=== PATIENT | female | born 1935 | race Caucasian/White ===

== ENCOUNTER 2019-04-17 18:58 | Inpatient (IN) ==
[2019-04-17] MEDS ORDERED: ALBUTEROL/IPRATROPIUM 3 ML NEB RESP TX STA (19:28)
[2019-04-17] MEDS ORDERED: ACETAMINOPHEN 500 MG TABLET PO STA (19:28)
[2019-04-17 19:36] LABS: Basophils % 0.2 % (0.0-0.8); Eosinophils # 0.2 10*3/uL (0.0-0.87); Eosinophils % 2.2 % (0.00-10.9); Hemoglobin 11.3 GM/DL (12.0-16.0); Immature Granulocytes % 0.5 %; Immature Granulocytes Absolute 0.04 #; Lymphocytes # 0.7 10*3/uL (1.4-4.0); Lymphocytes % 8.8 % (21.3-54.2); Mean Corpuscular HGB Conc 32.3 GM/DL (32-36); Mean Corpuscular Volume 93.8 FL (87-102); Mean Platelet Volume 9.4 FL (9.6-12.0); Monocytes % 6.9 % (1.7-12.7); Neutrophils % 81.4 % (38.7-73.9); Platelet Count 209 T/CUMM (130-400); Red Blood Count 3.73 MC/CUMM (3.8-5.5); White Blood Count 8.4 T/CUMM (4-12)
[2019-04-17 20:02] LABS: Alanine Aminotransferase 19 U/L (13-56); Albumin 3.4 G/DL (3.4-5.0); Alkaline Phosphatase 76 U/L (45-117); Aspartate Amino Transferase 21 U/L (0-37); Bilirubin,Total < 0.39 MG/DL (0.2-1.0); Blood Urea Nitrogen 21 MG/DL (7-18); Calcium 8.9 MG/DL (8.5-10.1); Estimated Glom Filtration Rate 20 ML/MIN; Glucose 125 MG/DL (74-106); Osmolality,Calculated 286.1 MOS/KG (273-304); Total Protein 6.7 G/DL (6.4-8.3)
[2019-04-17] MEDS ORDERED: SODIUM CHLORIDE 0.9% 1,000 ML IV STA (20:28)
[2019-04-17] MEDS ORDERED: cefTRIAXone 1,000 MG in SODIUM CHLORIDE 0.9% 100 ML IV STA (20:28)
[2019-04-17] MEDS ORDERED: DOXYCYCLINE HYCLATE INJ 100 MG in SODIUM CHLORIDE 0.9% 100 ML IV STA (20:28)
[2019-04-17] MEDS ORDERED: predniSONE 20 MG TABLET PO ONE (21:35)
[2019-04-17] MEDS ORDERED: TRAVOPROST 0.004% OPH SOLN 2.5 ML BOTTLE BOTH EYES SCH (22:17)
[2019-04-17] MEDS ORDERED: LACTATED RINGERS 1,000 ML IV SCH (22:17)
[2019-04-17] MEDS: SIMVASTATIN 20 MG TABLET PO SCH (23:26)
[2019-04-17] MEDS: EZETIMIBE 10 MG TABLET PO SCH (23:26)
[2019-04-17] MEDS: clonazePAM 0.5 MG TABLET PO SCH (23:26)
[2019-04-17] MEDS: TRAVOPROST 0.004% OPH SOLN 2.5 ML BOTTLE BOTH EYES SCH (23:26)
[2019-04-17] MEDS: HEPARIN 5,000 UNIT/1 ML VIAL SUBCUT SCH (23:31)
[2019-04-17] MEDS: ALBUTEROL 2.5 MG/3 ML NEB RESP TX SCH (23:35)
[2019-04-18] MEDS: ALBUTEROL 2.5 MG/3 ML NEB RESP TX SCH ×5 (02:50→20:14)
[2019-04-18] MEDS: guaiFENesin 200 MG/10 ML UDCUP PO PRN ×2 (03:05→23:27)
[2019-04-18] MEDS ORDERED: LEVOTHYROXINE 50 MCG TABLET PO SCH (06:00)
[2019-04-18 06:21] LABS: Basophils % 0.1 % (0.0-0.8); Hematocrit 32.6 VOL% (35.7-47.0); Hemoglobin 10.4 GM/DL (12.0-16.0); Immature Granulocytes % 0.8 %; Immature Granulocytes Absolute 0.08 #; Lymphocytes # 0.3 10*3/uL (1.4-4.0); Lymphocytes % 3.5 % (21.3-54.2); Mean Corpuscular HGB Conc 31.9 GM/DL (32-36); Mean Corpuscular Volume 93.4 FL (87-102); Mean Platelet Volume 9.6 FL (9.6-12.0); Neutrophils % 93.6 % (38.7-73.9); Platelet Count 200 T/CUMM (130-400); Red Blood Count 3.49 MC/CUMM (3.8-5.5); Red Cell Distribution Width 14.2 % (9.3-17.3); White Blood Count 9.8 T/CUMM (4-12)
[2019-04-18 06:40] LABS: Lymphocytes 3 % (20-55); Platelet Estimate Normal; Segmented Neutrophils 95 % (50-85); Total Cells Counted 100
[2019-04-18 06:41] LABS: Microcytosis Slight; Ovalocytes Slight; Polychromasia Slight
[2019-04-18 06:47] LABS: Troponin I < 0.015 NG/ML (0.00-0.045)
[2019-04-18] MEDS: HEPARIN 5,000 UNIT/1 ML VIAL SUBCUT SCH ×3 (06:49→23:40)
[2019-04-18 06:54] LABS: Calcium 8.3 MG/DL (8.5-10.1); Osmolality,Calculated 294.7 MOS/KG (273-304); Risk Ratio 1.76; Thyroid Stimulating Hormone 0.037 uIU/ml (0.358-3.74)
[2019-04-18] MEDS: MONTELUKAST 10 MG TABLET PO SCH (09:41)
[2019-04-18] MEDS: MAGNESIUM CHLORIDE 64 MG TABLET PO SCH ×3 (09:41→20:50)
[2019-04-18] MEDS: predniSONE 20 MG TABLET PO SCH (09:42)
[2019-04-18] MEDS: PANTOPRAZOLE 40 MG TABLET PO SCH (09:42)
[2019-04-18 10:09] LABS: Apearance,Urine CLEAR (Clear); Bacteria,Urine Occasional /HPF (Few); Bilirubin,Urine Negative (Negative); Blood, Urine Small mg/dL (Negative); Glucose,Urine (UA) Negative (Negative); Ketones,Urine Negative (Negative); Mucus,Urine Occasional /LPF (Occasional); Nitrite,Urine Negative (Negative); Protein,Urine Negative; RBC,Urine 1 /HPF (0-4); Squamous Epithelial Cell,Urine Occasional /HPF (0-10); Transitional Epi Cells,Urine Occasional /HPF (<1); Urine Color Yellow (Yellow); Urine Specific Gravity 1.009 (1.001-1.035); Urine Urobilinogen < 2.0 EU/DL (0.2-1.0); WBC,Urine 1 /HPF (0-6)
[2019-04-18] MEDS ORDERED: INFLUENZA VIRUS VACCINE 0.5 ML SYRINGE IM ONE (13:07)
[2019-04-18] MEDS ORDERED: SODIUM CHLORIDE 0.9% 1,000 ML IV SCH ×2 (13:30)
[2019-04-18] MEDS ORDERED: SODIUM CHLORIDE 0.9% 500 ML IV ONE (13:47)
[2019-04-18] MEDS ORDERED: FUROSEMIDE 40 MG/4 ML VIAL IV ONE (14:54)
[2019-04-18] MEDS ORDERED: FUROSEMIDE 40 MG/4 ML VIAL ONE (15:41)
[2019-04-18] MEDS: SIMVASTATIN 20 MG TABLET PO SCH (20:49)
[2019-04-18] MEDS: CETIRIZINE 10 MG TABLET PO PRN (20:49)
[2019-04-18] MEDS: EZETIMIBE 10 MG TABLET PO SCH (20:49)
[2019-04-18] MEDS: clonazePAM 0.5 MG TABLET PO SCH (20:50)
[2019-04-18] MEDS: TRAVOPROST 0.004% OPH SOLN 2.5 ML BOTTLE BOTH EYES SCH (20:52)
[2019-04-18] MEDS: cefTRIAXone 1,000 MG in SYRINGE 1 EACH IV SCH (20:55)
[2019-04-18] MEDS: ACETAMINOPHEN 500 MG TABLET PO PRN (22:04)
[2019-04-18] MEDS: TEMAZEPAM 15 MG CAPSULE PO SCH (23:04)
[2019-04-19] MEDS: ALBUTEROL 2.5 MG/3 ML NEB RESP TX SCH ×7 (00:16→23:23)
[2019-04-19 05:11] LABS: Basophils % 0.1 % (0.0-0.8); Hematocrit 29.3 VOL% (35.7-47.0); Hemoglobin 9.5 GM/DL (12.0-16.0); Immature Granulocytes % 1.3 %; Immature Granulocytes Absolute 0.12 #; Lymphocytes # 0.5 10*3/uL (1.4-4.0); Lymphocytes % 5.5 % (21.3-54.2); Mean Corpuscular HGB Conc 32.4 GM/DL (32-36); Mean Corpuscular Volume 92.4 FL (87-102); Mean Platelet Volume 9.9 FL (9.6-12.0); Monocytes % 3.8 % (1.7-12.7); Neutrophils % 89.3 % (38.7-73.9); Platelet Count 201 T/CUMM (130-400); Red Blood Count 3.17 MC/CUMM (3.8-5.5); Red Cell Distribution Width 13.8 % (9.3-17.3); White Blood Count 9.4 T/CUMM (4-12)
[2019-04-19 05:47] LABS: Albumin 2.8 G/DL (3.4-5.0); Bilirubin,Total 0.4 MG/DL (0.2-1.0); Calcium 8.6 MG/DL (8.5-10.1); Osmolality,Calculated 293.3 MOS/KG (273-304); Total Protein 5.9 G/DL (6.4-8.3)
[2019-04-19] MEDS: HEPARIN 5,000 UNIT/1 ML VIAL SUBCUT SCH ×3 (07:08→22:25)
[2019-04-19] MEDS: LEVOTHYROXINE 25 MCG TABLET PO SCH (08:16)
[2019-04-19] MEDS: predniSONE 20 MG TABLET PO SCH (08:16)
[2019-04-19] MEDS: MAGNESIUM CHLORIDE 64 MG TABLET PO SCH ×3 (08:16→20:43)
[2019-04-19] MEDS: MONTELUKAST 10 MG TABLET PO SCH ×2 (08:16→20:44)
[2019-04-19] MEDS: PANTOPRAZOLE 40 MG TABLET PO SCH (08:16)
[2019-04-19] MEDS: guaiFENesin 200 MG/10 ML UDCUP PO PRN ×2 (09:01→22:25)
[2019-04-19] MEDS: ACETAMINOPHEN 500 MG TABLET PO PRN (17:55)
[2019-04-19] MEDS: TRAVOPROST 0.004% OPH SOLN 2.5 ML BOTTLE BOTH EYES SCH (20:43)
[2019-04-19] MEDS: EZETIMIBE 10 MG TABLET PO SCH (20:44)
[2019-04-19] MEDS: SIMVASTATIN 20 MG TABLET PO SCH (20:44)
[2019-04-19] MEDS: clonazePAM 0.5 MG TABLET PO SCH (20:44)
[2019-04-19] MEDS: cefTRIAXone 1,000 MG in SYRINGE 1 EACH IV SCH (20:45)
[2019-04-19] MEDS: TEMAZEPAM 15 MG CAPSULE PO SCH (20:45)
[2019-04-20] MEDS: ALBUTEROL 2.5 MG/3 ML NEB RESP TX SCH ×6 (00:43→22:55)
[2019-04-20 06:07] LABS: Basophils % 0.2 % (0.0-0.8); Hematocrit 31.6 VOL% (35.7-47.0); Immature Granulocytes % 1.8 %; Immature Granulocytes Absolute 0.18 #; Lymphocytes % 10.3 % (21.3-54.2); Mean Corpuscular HGB Conc 31.6 GM/DL (32-36); Mean Corpuscular Volume 94.3 FL (87-102); Mean Platelet Volume 9.8 FL (9.6-12.0); Monocytes % 5.3 % (1.7-12.7); Neutrophils % 82.4 % (38.7-73.9); Platelet Count 226 T/CUMM (130-400); Red Blood Count 3.35 MC/CUMM (3.8-5.5); White Blood Count 9.9 T/CUMM (4-12)
[2019-04-20] MEDS: HEPARIN 5,000 UNIT/1 ML VIAL SUBCUT SCH ×3 (06:18→20:42)
[2019-04-20] MEDS: LEVOTHYROXINE 25 MCG TABLET PO SCH (06:18)
[2019-04-20 07:11] LABS: Calcium 8.6 MG/DL (8.5-10.1); Osmolality,Calculated 293.1 MOS/KG (273-304)
[2019-04-20 07:14] LABS: Albumin 2.8 G/DL (3.4-5.0); Calcium 8.5 MG/DL (8.5-10.1); Osmolality,Calculated 302.4 MOS/KG (273-304)
[2019-04-20] MEDS: MONTELUKAST 10 MG TABLET PO SCH ×2 (08:47→20:44)
[2019-04-20] MEDS: predniSONE 20 MG TABLET PO SCH (08:48)
[2019-04-20] MEDS: MAGNESIUM CHLORIDE 64 MG TABLET PO SCH ×3 (08:48→20:43)
[2019-04-20] MEDS: PANTOPRAZOLE 40 MG TABLET PO SCH (08:48)
[2019-04-20 11:03] LABS: Free T4 (Free Thyroxine) 1.32 NG/DL (0.76-1.46); Thyroid Stimulating Hormone 0.016 uIU/ml (0.358-3.74)
[2019-04-20] MEDS: ASPIRIN CHEW 81 MG TABLET PO SCH (12:25)
[2019-04-20] MEDS: DORNASE ALFA 2.5 MG/2.5 ML VIAL RESP TX SCH (12:26)
[2019-04-20] MEDS: guaiFENesin 200 MG/10 ML UDCUP PO PRN (17:50)
[2019-04-20] MEDS: ACETAMINOPHEN 500 MG TABLET PO PRN (19:48)
[2019-04-20] MEDS: TRAVOPROST 0.004% OPH SOLN 2.5 ML BOTTLE BOTH EYES SCH (20:42)
[2019-04-20] MEDS: cefTRIAXone 1,000 MG in SYRINGE 1 EACH IV SCH (20:42)
[2019-04-20] MEDS: TEMAZEPAM 15 MG CAPSULE PO SCH (20:43)
[2019-04-20] MEDS: clonazePAM 0.5 MG TABLET PO SCH (20:43)
[2019-04-20] MEDS: SIMVASTATIN 20 MG TABLET PO SCH (20:44)
[2019-04-20] MEDS: EZETIMIBE 10 MG TABLET PO SCH (20:44)
[2019-04-21] MEDS: ALBUTEROL 2.5 MG/3 ML NEB RESP TX SCH ×7 (03:05→23:37)
[2019-04-21] MEDS: HEPARIN 5,000 UNIT/1 ML VIAL SUBCUT SCH ×3 (05:25→20:58)
[2019-04-21] MEDS: LEVOTHYROXINE 25 MCG TABLET PO SCH (06:04)
[2019-04-21] MEDS: DORNASE ALFA 2.5 MG/2.5 ML VIAL RESP TX SCH ×3 (07:41→19:30)
[2019-04-21] MEDS: ASPIRIN CHEW 81 MG TABLET PO SCH (08:20)
[2019-04-21] MEDS: predniSONE 20 MG TABLET PO SCH (08:20)
[2019-04-21] MEDS: MAGNESIUM CHLORIDE 64 MG TABLET PO SCH ×3 (08:20→20:59)
[2019-04-21] MEDS: PANTOPRAZOLE 40 MG TABLET PO SCH (08:20)
[2019-04-21] MEDS: MONTELUKAST 10 MG TABLET PO SCH ×2 (08:20→20:59)
[2019-04-21] MEDS: ACETAMINOPHEN 500 MG TABLET PO PRN (18:14)
[2019-04-21] MEDS: TRAVOPROST 0.004% OPH SOLN 2.5 ML BOTTLE BOTH EYES SCH (20:58)
[2019-04-21] MEDS: CETIRIZINE 10 MG TABLET PO PRN (20:59)
[2019-04-21] MEDS: TEMAZEPAM 15 MG CAPSULE PO SCH (20:59)
[2019-04-21] MEDS: EZETIMIBE 10 MG TABLET PO SCH (20:59)
[2019-04-21] MEDS: SIMVASTATIN 20 MG TABLET PO SCH (20:59)
[2019-04-21] MEDS: clonazePAM 0.5 MG TABLET PO SCH (21:00)
[2019-04-21] MEDS: methylPREDNISolone SOD SUC 40 MG/1 ML VIAL IV SCH (22:30)
[2019-04-21] MEDS: cefTRIAXone 1,000 MG in SYRINGE 1 EACH IV SCH (22:31)
[2019-04-22] MEDS: ALBUTEROL 2.5 MG/3 ML NEB RESP TX SCH ×6 (02:43→23:50)
[2019-04-22 05:31] LABS: Calcium 8.2 MG/DL (8.5-10.1); Osmolality,Calculated 292.1 MOS/KG (273-304)
[2019-04-22] MEDS: HEPARIN 5,000 UNIT/1 ML VIAL SUBCUT SCH ×3 (05:46→20:46)
[2019-04-22] MEDS: DORNASE ALFA 2.5 MG/2.5 ML VIAL RESP TX SCH ×2 (07:24→19:37)
[2019-04-22] MEDS: MONTELUKAST 10 MG TABLET PO SCH ×2 (09:24→20:45)
[2019-04-22] MEDS: LEVOTHYROXINE 25 MCG TABLET PO SCH (09:24)
[2019-04-22] MEDS: ASPIRIN CHEW 81 MG TABLET PO SCH (09:24)
[2019-04-22] MEDS: PANTOPRAZOLE 40 MG TABLET PO SCH (09:24)
[2019-04-22] MEDS: MAGNESIUM CHLORIDE 64 MG TABLET PO SCH ×3 (09:25→20:45)
[2019-04-22] MEDS: methylPREDNISolone SOD SUC 40 MG/1 ML VIAL IV SCH ×2 (09:26→20:30)
[2019-04-22] MEDS ORDERED: FOSINOPRIL 20 MG TABLET PO SCH (14:00)
[2019-04-22] MEDS: ACETAMINOPHEN 500 MG TABLET PO PRN ×2 (14:09→18:21)
[2019-04-22] MEDS: cefTAZidime 1,000 MG in SYRINGE 1 EACH IV SCH (15:45)
[2019-04-22] MEDS: LISINOPRIL 20 MG TABLET PO SCH (15:45)
[2019-04-22] MEDS: EZETIMIBE 10 MG TABLET PO SCH (20:44)
[2019-04-22] MEDS: TEMAZEPAM 15 MG CAPSULE PO SCH (20:44)
[2019-04-22] MEDS: clonazePAM 0.5 MG TABLET PO SCH (20:44)
[2019-04-22] MEDS: TRAVOPROST 0.004% OPH SOLN 2.5 ML BOTTLE BOTH EYES SCH (20:44)
[2019-04-22] MEDS: SIMVASTATIN 20 MG TABLET PO SCH (20:45)
[2019-04-22] MEDS: CETIRIZINE 10 MG TABLET PO PRN (20:45)
[2019-04-22] MEDS: METHOCARBAMOL 500 MG TABLET PO PRN (23:17)
[2019-04-23] MEDS: ACETAMINOPHEN 500 MG TABLET PO PRN (00:40)
[2019-04-23] MEDS: ALBUTEROL 2.5 MG/3 ML NEB RESP TX SCH ×5 (03:30→19:46)
[2019-04-23 05:51] LABS: Basophils # 0.1 10*3/uL (0.0-0.2); Basophils % 0.6 % (0.0-0.8); Hematocrit 30.4 VOL% (35.7-47.0); Hemoglobin 9.8 GM/DL (12.0-16.0); Immature Granulocytes % 13.1 %; Immature Granulocytes Absolute 1.37 #; Lymphocytes # 0.9 10*3/uL (1.4-4.0); Lymphocytes % 8.2 % (21.3-54.2); Mean Corpuscular HGB Conc 32.2 GM/DL (32-36); Mean Corpuscular Volume 92.1 FL (87-102); Mean Platelet Volume 9.4 FL (9.6-12.0); Monocytes % 4.9 % (1.7-12.7); NRBC # 0.05 10*3/uL; Neutrophils % 73.2 % (38.7-73.9); Platelet Count 241 T/CUMM (130-400); Red Cell Distribution Width 13.5 % (9.3-17.3); White Blood Count 10.4 T/CUMM (4-12)
[2019-04-23 06:09] LABS: Calcium 8.6 MG/DL (8.5-10.1); Osmolality,Calculated 290.5 MOS/KG (273-304)
[2019-04-23 06:23] LABS: Band Neutrophils 5 % (0-10); Hypochromasia Slight; Lymphocytes 8 % (20-55); Metamyelocytes 3 %; Microcytosis 1+; Nucleated Red Blood Cells 1 (0-5); Ovalocytes Few; Segmented Neutrophils 82 % (50-85); Total Cells Counted 100
[2019-04-23 06:24] LABS: Platelet Estimate Normal
[2019-04-23] MEDS: HEPARIN 5,000 UNIT/1 ML VIAL SUBCUT SCH ×3 (06:45→21:00)
[2019-04-23] MEDS: DORNASE ALFA 2.5 MG/2.5 ML VIAL RESP TX SCH ×2 (07:27→19:46)
[2019-04-23] MEDS: methylPREDNISolone SOD SUC 40 MG/1 ML VIAL IV SCH ×2 (08:41→22:24)
[2019-04-23] MEDS: LISINOPRIL 20 MG TABLET PO SCH (08:42)
[2019-04-23] MEDS: ASPIRIN CHEW 81 MG TABLET PO SCH (08:42)
[2019-04-23] MEDS: LEVOTHYROXINE 25 MCG TABLET PO SCH (08:42)
[2019-04-23] MEDS: MAGNESIUM CHLORIDE 64 MG TABLET PO SCH ×3 (08:42→22:27)
[2019-04-23] MEDS: MONTELUKAST 10 MG TABLET PO SCH ×2 (08:43→22:28)
[2019-04-23] MEDS: PANTOPRAZOLE 40 MG TABLET PO SCH (08:43)
[2019-04-23 09:55] LABS: Calcium 8.9 MG/DL (8.5-10.1); Osmolality,Calculated 289.4 MOS/KG (273-304)
[2019-04-23] MEDS: cefTAZidime 1,000 MG in SYRINGE 1 EACH IV SCH (14:29)
[2019-04-23] MEDS: METHOCARBAMOL 500 MG TABLET PO PRN (14:29)
[2019-04-23] MEDS: TEMAZEPAM 15 MG CAPSULE PO SCH (22:27)
[2019-04-23] MEDS: CETIRIZINE 10 MG TABLET PO PRN (22:27)
[2019-04-23] MEDS: SIMVASTATIN 20 MG TABLET PO SCH (22:27)
[2019-04-23] MEDS: EZETIMIBE 10 MG TABLET PO SCH (22:28)
[2019-04-23] MEDS: clonazePAM 0.5 MG TABLET PO SCH (22:29)
[2019-04-23] MEDS: TRAVOPROST 0.004% OPH SOLN 2.5 ML BOTTLE BOTH EYES SCH (22:29)
[2019-04-24] MEDS: ALBUTEROL 2.5 MG/3 ML NEB RESP TX SCH ×7 (00:21→23:05)
[2019-04-24 05:02] LABS: Basophils # 0.1 10*3/uL (0.0-0.2); Basophils % 0.8 % (0.0-0.8); Hematocrit 31.2 VOL% (35.7-47.0); Hemoglobin 9.9 GM/DL (12.0-16.0); Immature Granulocytes % 16.6 %; Immature Granulocytes Absolute 2.15 #; Lymphocytes % 7.9 % (21.3-54.2); Mean Corpuscular HGB Conc 31.7 GM/DL (32-36); Mean Corpuscular Volume 94.5 FL (87-102); Mean Platelet Volume 9.6 FL (9.6-12.0); Monocytes % 4.9 % (1.7-12.7); NRBC # 0.03 10*3/uL; Neutrophils % 69.8 % (38.7-73.9); Platelet Count 237 T/CUMM (130-400); Red Cell Distribution Width 13.8 % (9.3-17.3)
[2019-04-24] MEDS: HEPARIN 5,000 UNIT/1 ML VIAL SUBCUT SCH ×3 (05:28→21:59)
[2019-04-24 05:35] LABS: Osmolality,Calculated 289.5 MOS/KG (273-304)
[2019-04-24 05:38] LABS: Band Neutrophils 2 % (0-10); Lymphocytes 9 % (20-55); Metamyelocytes 2 %; Myelocytes 1 %; Segmented Neutrophils 80 % (50-85); Total Cells Counted 100
[2019-04-24 05:39] LABS: Burr Cells 1+; Hypochromasia 1+; Ovalocytes 1+; Platelet Estimate Normal
[2019-04-24] MEDS: LEVOTHYROXINE 25 MCG TABLET PO SCH (07:26)
[2019-04-24] MEDS: DORNASE ALFA 2.5 MG/2.5 ML VIAL RESP TX SCH ×2 (07:45→20:02)
[2019-04-24] MEDS: MAGNESIUM CHLORIDE 64 MG TABLET PO SCH ×3 (08:49→21:58)
[2019-04-24] MEDS: PANTOPRAZOLE 40 MG TABLET PO SCH (08:49)
[2019-04-24] MEDS: methylPREDNISolone SOD SUC 40 MG/1 ML VIAL IV SCH ×2 (08:50→21:54)
[2019-04-24] MEDS: ASPIRIN CHEW 81 MG TABLET PO SCH (08:50)
[2019-04-24] MEDS: LISINOPRIL 20 MG TABLET PO SCH (08:50)
[2019-04-24] MEDS: MONTELUKAST 10 MG TABLET PO SCH ×2 (08:50→21:58)
[2019-04-24] MEDS: METHOCARBAMOL 500 MG TABLET PO PRN ×2 (12:11→22:14)
[2019-04-24] MEDS: cefTAZidime 1,000 MG in SYRINGE 1 EACH IV SCH (15:21)
[2019-04-24] MEDS: clonazePAM 0.5 MG TABLET PO SCH (21:58)
[2019-04-24] MEDS: EZETIMIBE 10 MG TABLET PO SCH (21:58)
[2019-04-24] MEDS: TEMAZEPAM 15 MG CAPSULE PO SCH (21:58)
[2019-04-24] MEDS: SIMVASTATIN 20 MG TABLET PO SCH (21:59)
[2019-04-24] MEDS: TRAVOPROST 0.004% OPH SOLN 2.5 ML BOTTLE BOTH EYES SCH (22:07)
[2019-04-25] MEDS: ALBUTEROL 2.5 MG/3 ML NEB RESP TX SCH ×6 (02:58→22:36)
[2019-04-25 05:16] LABS: Basophils # 0.1 10*3/uL (0.0-0.2); Basophils % 0.8 % (0.0-0.8); Eosinophils % 0.1 % (0.00-10.9); Hematocrit 31.8 VOL% (35.7-47.0); Hemoglobin 10.1 GM/DL (12.0-16.0); Immature Granulocytes % 19.7 %; Immature Granulocytes Absolute 2.86 #; Lymphocytes % 6.5 % (21.3-54.2); Mean Corpuscular HGB Conc 31.8 GM/DL (32-36); Mean Corpuscular Volume 93.3 FL (87-102); Mean Platelet Volume 9.6 FL (9.6-12.0); Monocytes % 3.7 % (1.7-12.7); NRBC # 0.03 10*3/uL; Neutrophils % 69.2 % (38.7-73.9); Platelet Count 227 T/CUMM (130-400); Red Blood Count 3.41 MC/CUMM (3.8-5.5); Red Cell Distribution Width 13.9 % (9.3-17.3); White Blood Count 14.5 T/CUMM (4-12)
[2019-04-25] MEDS: HEPARIN 5,000 UNIT/1 ML VIAL SUBCUT SCH ×3 (05:19→21:57)
[2019-04-25 05:37] LABS: Calcium 8.4 MG/DL (8.5-10.1); Osmolality,Calculated 296.1 MOS/KG (273-304)
[2019-04-25 06:17] LABS: Eosinophils 1 % (0-10); Lymphocytes 15 % (20-55); Platelet Estimate Normal; Polychromasia Few; Segmented Neutrophils 78 % (50-85); Total Cells Counted 100
[2019-04-25] MEDS: DORNASE ALFA 2.5 MG/2.5 ML VIAL RESP TX SCH ×2 (07:15→19:04)
[2019-04-25] MEDS: LEVOTHYROXINE 25 MCG TABLET PO SCH (07:47)
[2019-04-25] MEDS: PANTOPRAZOLE 40 MG TABLET PO SCH (09:03)
[2019-04-25] MEDS: MAGNESIUM CHLORIDE 64 MG TABLET PO SCH ×3 (09:03→21:54)
[2019-04-25] MEDS: ASPIRIN CHEW 81 MG TABLET PO SCH (09:03)
[2019-04-25] MEDS: MONTELUKAST 10 MG TABLET PO SCH ×2 (09:03→21:56)
[2019-04-25] MEDS: methylPREDNISolone SOD SUC 40 MG/1 ML VIAL IV SCH ×2 (09:03→21:49)
[2019-04-25] MEDS: cefTAZidime 1,000 MG in SYRINGE 1 EACH IV SCH (16:01)
[2019-04-25] MEDS: METHOCARBAMOL 500 MG TABLET PO PRN (17:14)
[2019-04-25] MEDS: TRAVOPROST 0.004% OPH SOLN 2.5 ML BOTTLE BOTH EYES SCH (21:53)
[2019-04-25] MEDS: TEMAZEPAM 15 MG CAPSULE PO SCH (21:55)
[2019-04-25] MEDS: EZETIMIBE 10 MG TABLET PO SCH (21:56)
[2019-04-25] MEDS: SIMVASTATIN 20 MG TABLET PO SCH (21:57)
[2019-04-25] MEDS: carvediloL 3.125 MG TABLET PO SCH (21:58)
[2019-04-26] MEDS: ALBUTEROL 2.5 MG/3 ML NEB RESP TX SCH ×3 (02:30→11:17)
[2019-04-26] MEDS: HEPARIN 5,000 UNIT/1 ML VIAL SUBCUT SCH (05:13)
[2019-04-26 05:50] LABS: Basophils # 0.1 10*3/uL (0.0-0.2); Basophils % 0.8 % (0.0-0.8); Hematocrit 31.9 VOL% (35.7-47.0); Hemoglobin 10.2 GM/DL (12.0-16.0); Immature Granulocytes % 17.9 %; Immature Granulocytes Absolute 2.73 #; Lymphocytes # 1.1 10*3/uL (1.4-4.0); Lymphocytes % 6.9 % (21.3-54.2); Mean Corpuscular Volume 93.8 FL (87-102); Mean Platelet Volume 9.7 FL (9.6-12.0); Monocytes % 3.9 % (1.7-12.7); NRBC # 0.03 10*3/uL; Neutrophils % 70.5 % (38.7-73.9); Platelet Count 209 T/CUMM (130-400); Red Cell Distribution Width 13.9 % (9.3-17.3); White Blood Count 15.2 T/CUMM (4-12)
[2019-04-26 06:06] LABS: Calcium 8.4 MG/DL (8.5-10.1); Osmolality,Calculated 287.7 MOS/KG (273-304)
[2019-04-26] MEDS: LEVOTHYROXINE 25 MCG TABLET PO SCH (06:15)
[2019-04-26 06:18] LABS: Band Neutrophils 2 % (0-10); Lymphocytes 9 % (20-55); Metamyelocytes 1 %; Myelocytes 1 %; Segmented Neutrophils 83 % (50-85); Total Cells Counted 100
[2019-04-26 06:19] LABS: Microcytosis Slight; Ovalocytes Slight
[2019-04-26] MEDS: DORNASE ALFA 2.5 MG/2.5 ML VIAL RESP TX SCH (07:31)
[2019-04-26] MEDS: MONTELUKAST 10 MG TABLET PO SCH (08:28)
[2019-04-26] MEDS: carvediloL 3.125 MG TABLET PO SCH (08:29)
[2019-04-26] MEDS: PANTOPRAZOLE 40 MG TABLET PO SCH (08:29)
[2019-04-26] MEDS: ASPIRIN CHEW 81 MG TABLET PO SCH (08:30)
[2019-04-26] MEDS: MAGNESIUM CHLORIDE 64 MG TABLET PO SCH (08:30)
[2019-04-26] MEDS: methylPREDNISolone SOD SUC 40 MG/1 ML VIAL IV SCH (08:33)
[2019-04-26] MEDS: cefTAZidime 1,000 MG in SYRINGE 1 EACH IV SCH (08:47)
[2019-04-26] MEDS ORDERED: amLODIPine 5 MG TABLET PO SCH (09:00)
[2019-04-26 11:32] VITALS: BP 151/50
== END 2019-04-26 12:41 | disposition home health service (06) | DRG 178 ==
LOC: EDUNIT# → EDBD → N.ED 18:58 → N.EDINP 21:18 → SUATTDRO 21:18 → SUPCPDRO 21:18 → N.2E 21:46
PROVIDERS: ADMIT Internal Medicine; ATTEND Emergency Medicine

== ENCOUNTER 2019-05-11 14:48 | Observation (INO) ==
[2019-05-11] MEDS ORDERED: ASPIRIN 325 MG TABLET PO STA (15:21)
[2019-05-11] MEDS ORDERED: NITROGLYCERIN 2% OINT 1 INCH/GM PACK TOP STA (15:21)
[2019-05-11] MEDS ORDERED: ENOXAPARIN 100 MG/ML SYRINGE SUBCUT STA (15:21)
[2019-05-11 15:37] LABS: Basophils % 0.1 % (0.0-0.8); Eosinophils % 0.1 % (0.00-10.9); Hematocrit 39.8 VOL% (35.7-47.0); Immature Granulocytes % 0.6 %; Immature Granulocytes Absolute 0.06 #; Lymphocytes # 0.6 10*3/uL (1.4-4.0); Lymphocytes % 5.3 % (21.3-54.2); Mean Corpuscular HGB Conc 32.7 GM/DL (32-36); Mean Corpuscular Volume 92.1 FL (87-102); Mean Platelet Volume 9.5 FL (9.6-12.0); Monocytes % 5.5 % (1.7-12.7); Neutrophils % 88.4 % (38.7-73.9); Platelet Count 169 T/CUMM (130-400); Red Blood Count 4.32 MC/CUMM (3.8-5.5); Red Cell Distribution Width 14.3 % (9.3-17.3); White Blood Count 10.8 T/CUMM (4-12)
[2019-05-11 15:48] LABS: Partial Thromboplastin Time 22.9 SECS (20.8-36.0)
[2019-05-11 15:57] LABS: Albumin 3.8 G/DL (3.4-5.0); Bilirubin,Total 0.6 MG/DL (0.2-1.0); Calcium 9.2 MG/DL (8.5-10.1); Osmolality,Calculated 286.5 MOS/KG (273-304); Total Protein 7.1 G/DL (6.4-8.3)
[2019-05-11] MEDS ORDERED: METHOCARBAMOL 750 MG TABLET PO PRN (18:39)
[2019-05-11] MEDS: ALBUTEROL 2.5 MG/3 ML NEB RESP TX SCH (20:36)
[2019-05-11] MEDS ORDERED: TEMAZEPAM 15 MG CAPSULE PO SCH (21:00)
[2019-05-11] MEDS: MAGNESIUM CHLORIDE 64 MG TABLET PO SCH (21:25)
[2019-05-11] MEDS: clonazePAM 0.5 MG TABLET PO SCH (21:25)
[2019-05-11] MEDS: CETIRIZINE 10 MG TABLET PO SCH (21:25)
[2019-05-11] MEDS: EZETIMIBE 10 MG TABLET PO SCH (21:25)
[2019-05-11] MEDS: FLUTICASONE 220 MCG/PUFF INHALER 12 GM INH SCH (21:25)
[2019-05-11] MEDS: LATANOPROST 0.005% OPH SOLN 2.5 ML BOTTLE BOTH EYES SCH (22:08)
[2019-05-11] MEDS: TRAVOPROST 0.004% OPH SOLN 2.5 ML BOTTLE BOTH EYES SCH (22:08)
[2019-05-12] MEDS: ALBUTEROL 2.5 MG/3 ML NEB RESP TX SCH ×4 (04:10→19:19)
[2019-05-12] MEDS: LEVOTHYROXINE 25 MCG TABLET PO SCH (05:58)
[2019-05-12 06:33] LABS: Basophils % 0.2 % (0.0-0.8); Eosinophils # 0.1 10*3/uL (0.0-0.87); Eosinophils % 1.2 % (0.00-10.9); Hematocrit 35.6 VOL% (35.7-47.0); Hemoglobin 11.5 GM/DL (12.0-16.0); Immature Granulocytes % 0.5 %; Immature Granulocytes Absolute 0.03 #; Lymphocytes # 1.6 10*3/uL (1.4-4.0); Lymphocytes % 26.5 % (21.3-54.2); Mean Corpuscular HGB Conc 32.3 GM/DL (32-36); Mean Platelet Volume 9.7 FL (9.6-12.0); Monocytes % 8.6 % (1.7-12.7); Platelet Count 146 T/CUMM (130-400); Red Blood Count 3.83 MC/CUMM (3.8-5.5); Red Cell Distribution Width 14.6 % (9.3-17.3); White Blood Count 5.9 T/CUMM (4-12)
[2019-05-12 06:58] LABS: Calcium 8.9 MG/DL (8.5-10.1); Osmolality,Calculated 290.1 MOS/KG (273-304); Thyroid Stimulating Hormone 0.7 uIU/ml (0.358-3.74)
[2019-05-12] MEDS ORDERED: DEXTROMETHORPHAN GUAIFENESIN PO SCH (09:00)
[2019-05-12] MEDS: PANTOPRAZOLE 40 MG TABLET PO SCH ×2 (09:34→15:07)
[2019-05-12] MEDS: lisinopriL 20 MG TABLET PO SCH ×2 (09:34→15:07)
[2019-05-12] MEDS: MAGNESIUM CHLORIDE 64 MG TABLET PO SCH ×4 (09:34→20:45)
[2019-05-12] MEDS: MONTELUKAST 10 MG TABLET PO SCH ×2 (09:34→15:07)
[2019-05-12] MEDS: POTASSIUM CHLORIDE 10 MEQ TABLET PO SCH ×2 (09:34→15:07)
[2019-05-12] MEDS: FLUTICASONE 220 MCG/PUFF INHALER 12 GM INH SCH ×3 (09:34→20:45)
[2019-05-12] MEDS: FUROSEMIDE 20 MG TABLET PO SCH ×2 (09:34→15:07)
[2019-05-12] MEDS: TRAVOPROST 0.004% OPH SOLN 2.5 ML BOTTLE BOTH EYES SCH (20:45)
[2019-05-12] MEDS: LATANOPROST 0.005% OPH SOLN 2.5 ML BOTTLE BOTH EYES SCH (20:45)
[2019-05-12] MEDS: CETIRIZINE 10 MG TABLET PO SCH (20:46)
[2019-05-12] MEDS: clonazePAM 0.5 MG TABLET PO SCH (20:46)
[2019-05-12] MEDS: EZETIMIBE 10 MG TABLET PO SCH (20:46)
[2019-05-13] MEDS: ALBUTEROL 2.5 MG/3 ML NEB RESP TX SCH ×4 (00:21→19:11)
[2019-05-13] MEDS: LEVOTHYROXINE 25 MCG TABLET PO SCH (05:46)
[2019-05-13] MEDS ORDERED: REGADENOSON 0.4 MG/5 ML SYRINGE IV ONE (09:08)
[2019-05-13] MEDS: FLUTICASONE 220 MCG/PUFF INHALER 12 GM INH SCH ×2 (11:05→21:12)
[2019-05-13] MEDS: POTASSIUM CHLORIDE 10 MEQ TABLET PO SCH (11:06)
[2019-05-13] MEDS: MONTELUKAST 10 MG TABLET PO SCH (11:06)
[2019-05-13] MEDS: MAGNESIUM CHLORIDE 64 MG TABLET PO SCH ×3 (11:06→21:14)
[2019-05-13] MEDS: lisinopriL 20 MG TABLET PO SCH (11:06)
[2019-05-13] MEDS: PANTOPRAZOLE 40 MG TABLET PO SCH (11:06)
[2019-05-13] MEDS: EZETIMIBE 10 MG TABLET PO SCH (21:12)
[2019-05-13] MEDS: CETIRIZINE 10 MG TABLET PO SCH (21:12)
[2019-05-13] MEDS: TRAVOPROST 0.004% OPH SOLN 2.5 ML BOTTLE BOTH EYES SCH (21:12)
[2019-05-13] MEDS: LATANOPROST 0.005% OPH SOLN 2.5 ML BOTTLE BOTH EYES SCH (21:12)
[2019-05-13] MEDS: clonazePAM 0.5 MG TABLET PO SCH (21:12)
[2019-05-14] MEDS: ALBUTEROL 2.5 MG/3 ML NEB RESP TX SCH ×2 (00:33→07:50)
[2019-05-14 04:50] LABS: Basophils % 0.2 % (0.0-0.8); Eosinophils # 0.2 10*3/uL (0.0-0.87); Eosinophils % 3.7 % (0.00-10.9); Hematocrit 32.1 VOL% (35.7-47.0); Hemoglobin 10.2 GM/DL (12.0-16.0); Immature Granulocytes % 0.6 %; Immature Granulocytes Absolute 0.03 #; Lymphocytes # 1.1 10*3/uL (1.4-4.0); Lymphocytes % 20.2 % (21.3-54.2); Mean Corpuscular HGB Conc 31.8 GM/DL (32-36); Monocytes % 8.9 % (1.7-12.7); Neutrophils % 66.4 % (38.7-73.9); Platelet Count 142 T/CUMM (130-400); Red Blood Count 3.38 MC/CUMM (3.8-5.5); Red Cell Distribution Width 14.7 % (9.3-17.3); White Blood Count 5.4 T/CUMM (4-12)
[2019-05-14 05:21] LABS: Calcium 8.8 MG/DL (8.5-10.1); Osmolality,Calculated 289.4 MOS/KG (273-304)
[2019-05-14] MEDS: LEVOTHYROXINE 25 MCG TABLET PO SCH (05:48)
[2019-05-14 08:11] VITALS: BP 116/57
[2019-05-14] MEDS: lisinopriL 20 MG TABLET PO SCH (08:34)
[2019-05-14] MEDS: MONTELUKAST 10 MG TABLET PO SCH (08:37)
[2019-05-14] MEDS: MAGNESIUM CHLORIDE 64 MG TABLET PO SCH (08:37)
[2019-05-14] MEDS: PANTOPRAZOLE 40 MG TABLET PO SCH (08:37)
[2019-05-14] MEDS: POTASSIUM CHLORIDE 10 MEQ TABLET PO SCH (08:37)
[2019-05-14] MEDS: FLUTICASONE 220 MCG/PUFF INHALER 12 GM INH SCH (10:11)
== END 2019-05-14 10:50 | disposition home or self-care (01) ==
LOC: N.ED 14:48 → INTOOBSV 16:15 → N.EDINP 16:15 → N.TELEN 17:01
PROVIDERS: ADMIT Internal Medicine; ATTEND Internal Medicine